=== PATIENT | male | born 1950 | race Caucasian/White ===

== ENCOUNTER 2018-06-11 08:00 | Day surgery (SDC) | payer MEDICARE, OTHER ==
[2018-06-11] MEDS ORDERED: ONDANSETRON HCL INJ/PF 4 MG/2 ML SDV ONE (08:36)
[2018-06-11] MEDS ORDERED: DIPHENHYDRAMINE HCL 50 MG/ML VIAL ONE (08:36)
[2018-06-11] MEDS ORDERED: NALOXONE HCL INJ/PF 0.4 MG/1 ML SDV ONE (08:36)
[2018-06-11] MEDS ORDERED: FLUMAZENIL INJ 0.5 MG/5 ML VIAL ONE (08:37)
[2018-06-11] MEDS ORDERED: EPINEPHRINE INJ 1 MG/10 ML DISP.SYRIN ONE (08:37)
[2018-06-11] MEDS ORDERED: GLUCAGON,HUMAN RECOMB 1 MG INJ ONE (08:37)
[2018-06-11] MEDS: MIDAZOLAM 2 MG/2 ML INJ ONE ×3 (08:48→08:54)
[2018-06-11] MEDS: FENTANYL CITRATE INJ/PF 100 MCG/2 ML AMPUL ONE ×2 (08:50→08:52)
--- NOTE | 2018-06-11 09:13 | Operative Report ---
Operative Report DATE OF SURGERY: 06/11/18 Operative Report: The risks benefits and alternatives of the procedure explained to the patient in detail and informed consent is obtained.A GIF Olympus video scope was inserted into the patient's mouth and hypopharynx, the esophagus is identified intubated and insufflated, the scope was then advanced through the esophagus stomach and duodenum, retroflexion maneuver is done, the esophagus stomach and first and second portions of the duodenum examined PREOPERATIVE DIAGNOSIS: Dysphagia weight loss POSTOPERATIVE DIAGNOSIS: Gastritis. Duodenitis. Biopsies taken to rule out for Helicobacter pylori. Sliding hiatal hernia. Patient appears to have a very prominent Schatzki's ring. Initial evaluation of the distal esophagus appears normal but on retroflexion of the scope there appears to be a white, translucent tissue that is visible status post biopsy OPERATION: EGD with biopsy SURGEON: SANDRA ROSARIO ANESTHESIA: Moderate Sedation - 4 mg of Versed, 50 mics of fentanyl. Conscious sedation monitoring time 30 minutes. TISSUE REMOVED OR ALTERED: As noted above. COMPLICATIONS: None. ESTIMATED BLOOD LOSS: None. INTRAOPERATIVE FINDINGS: As noted above. PROCEDURE: Patient tolerated the procedure well. No immediate postprocedure complications are noted. Patient discharged in good condition. Discharge date 06/11/2018. Discharge diet: Regular. Discharge activity: Regular. 2-3 week follow-up to discuss findings. We will wait on the pathology. Further recommendations to follow.
[2018-06-11 10:08] VITALS: BP 108/40
== END 2018-06-11 10:10 | disposition home or self-care (01) ==
LOC: END 08:00
PROVIDERS: ATTEND Internal Medicine Gastroenterology
PROC: 0DB68ZX Excision of Stomach, Via Natural or Artificial Opening Endoscopic, Diagnostic (ICD-10-PCS; principal; 2018-06-11 09:15)
DX: K22.2 Esophageal obstruction (principal); K29.80 Duodenitis without bleeding; K29.70 Gastritis, unspecified, without bleeding; K21.0 Gastro-esophageal reflux disease with esophagitis; R13.10 Dysphagia, unspecified; R63.4 Abnormal weight loss; Z68.1 Body mass index [BMI] 19.9 or less, adult
CPT/HCPCS: 43239; 88305 ×2; J2250; J3010; J0171; J1200; J1610; J2310; J2405; J3490

== ENCOUNTER → 2018-07-09 | Outpatient (CLI) | payer MEDICARE, OTHER ==
--- NOTE | 2018-07-09 09:29 | WOMENS IMAGING REPORT ---
EXAM DESCRIPTION: BONE DENSITY HIP/SPINE COMPLETED DATE/TIME: 07/09/2018 8:44 am REASON FOR STUDY: BONE DENSITY /M81.0 M85.80 OTH DISRD OF BONE DENSITY AND STRUCTURE, UNSPECIFIED M81.0 AGE-RELATED OSTEOPOROSIS W/O CURRENT PATHOLOGICAL FRAC COMPARISON: 2005 TECHNIQUE: Dual-Energy X-ray Absorptiometry (DEXA) of the AP Spine and Hip. LIMITATIONS: None. FINDINGS: LUMBAR SPINE: The bone mineral density (BMD) measured from L1-L4 in the AP projection correlates with a T-score of -0.1, which is normal as defined by the World Health Organization. This represents a 20% increase si nce 2006, which likely is due to vertebral body endplate sclerosis and facet arthropathy with bony sc lerosis. HIP: The bone mineral density (BMD) measured in the left femoral neck at the hip correlates with a T-score of -1.9, which is osteopenic as defined by the World Health Organization. This is statistically sim ilar compared to imaging in 2006 IMPRESSION: 1. LUMBAR SPINE: Normal 2. HIP: Osteopenic COMMENT: The World Health Organization defines low BMD as follows: T-score: Normal: Greater than -1.0 Osteopenia: Between -1.0 and -2.5 Osteoporosis: Less than -2.5 without fractures Established osteoporosis: Less than -2.5 with fractures In general, you may wish to consider: Diagnosis Treatment Follow-up DEXA Normal BMD Prevention 2-3 years Osteopenia Prevention/Therapy 1-2 years Osteoporosis Therapy Yearly TECHNICAL DOCUMENTATION: JOB ID: [id number] [employer]- All Rights Reserved Reading location - IP/workstation name: [email or web address]
== END ==
LOC: WI 07:56
PROVIDERS: ATTEND Family Medicine
DX: M81.0 Age-related osteoporosis without current pathological fracture (principal)
CPT/HCPCS: 77080

== ENCOUNTER 2019-01-14 07:44 | Day surgery (SDC) | payer MEDICARE, OTHER ==
[2019-01-12 10:59] LABS: APPEARANCE,URINE CLEAR; BILIRUBIN,URINE NEGATIVE (NEGATIVE); COLOR,URINE YELLOW; GLUCOSE, URINE NEGATIVE (NEGATIVE); KETONES,URINE NEGATIVE (NEGATIVE); LEUKOCYTE ESTERASE,URINE NEGATIVE (NEGATIVE); NITRITE,URINE NEGATIVE (NEGATIVE); PROTEIN,URINE NEGATIVE (NEGATIVE); URINE SPECIFIC GRAVITY 1.003; UROBILINOGEN,URINE NEGATIVE mg/dL (<2.0)
--- NOTE | 2019-01-12 11:42 | RADIOLOGY REPORT (SQ) ---
EXAM DESCRIPTION: CHEST PA/LATERAL COMPLETED DATE/TIME: 01/12/2019 11:29 am REASON FOR STUDY: PRE-OP COMPARISON: None. EXAM PARAMETERS: NUMBER OF VIEWS: two views TECHNIQUE: Digital Frontal and Lateral radiographic views of the chest acquired. RADIATION DOSE: NA LIMITATIONS: none FINDINGS: LUNGS AND PLEURA: Mild hyperinflation of the lungs and flattening of the diaphragms, find ings suggest COPD. Slight bibasilar atelectasis or scar. No acute pulmonary consolidation. No pneu mothorax or pleural effusion. MEDIASTINUM AND HILAR STRUCTURES: No masses or contour abnormalities. HEART AND VASCULAR STRUCTURES: Heart normal size. No evidence for failure. BONES: No acute findings. HARDWARE: None in the chest. OTHER: Moderate size hiatal hernia. Partially visualized left shoulder arthroplasty and hardware an terior fusion lower cervical spine IMPRESSION: 1. Findings suggest COPD. Slight minimal bibasilar scar or atelectasis. Prior granulo matous disease. No acute findings. 2. Hiatal hernia. TECHNICAL DOCUMENTATION: JOB ID: [id number] [employer]- All Rights Reserved Reading location - IP/workstation name: [email or web address]
[2019-01-12 11:57] LABS: HEMATOCRIT 36.2 % (37.9-51.0); HEMOGLOBIN 12.7 g/dL (13.5-17.0); MEAN CORPUSCULAR HEMOGLOBIN 36.2 pg (27.0-33.4); MEAN CORPUSCULAR VOLUME 104 fl (80-97); PLATELET COUNT 319 10^3/uL (150-450); RED CELL DISTRIBUTION WIDTH 12.7 % (11.5-14.0); WHITE BLOOD COUNT 6.3 10^3/uL (4.0-10.5)
[2019-01-12 12:21] LABS: ANION GAP 5 (5-19); BLOOD UREA NITROGEN 10 mg/dL (7-20); CALCIUM 9.1 mg/dL (8.4-10.2); CARBON DIOXIDE 26 mmol/L (22-30); CHLORIDE 104 mmol/L (98-107); GLUCOSE 93 mg/dL (75-110); POTASSIUM 4.9 mmol/L (3.6-5.0); SODIUM 135.3 mmol/L (137-145)
--- NOTE | 2019-01-12 23:37 | EKG REPORT ---
SEVERITY:- BORDERLINE ECG - SINUS RHYTHM PROBABLE LEFT ATRIAL ABNORMALITY : Confirmed by: Brunilda Vera MD 12-Jan-2019 23:37:14
[~2019-01-14 07:44] MED LIST: CLINDAMYCIN 600 MG/D5W RTU 600 MG/50 ML RTUPB IV ONE; CLINDAMYCIN 600 MG/D5W RTU 600 MG/50 ML RTUPB IV PRN; LACTATED RINGERS 1000 ML IV PRN; LIDOCAINE 0.5% INJ-PF (5 MG/ML) 50 ML SDV SUBCUT PRN
[2019-01-14] MEDS ORDERED: BUPIVACAINE HCL 0.5%-EPI 1:200000 INJ/PF 30 ML VIAL ONE (09:35)
[2019-01-14] MEDS ORDERED: LIDOCAINE 1% INJ-PF (10 MG/ML) 30 ML SDV ONE (10:21)
[2019-01-14] MEDS ORDERED: MIDAZOLAM 2 MG/2 ML INJ ONE (10:31)
[2019-01-14] MEDS ORDERED: LIDOCAINE 1%/EPINEPHRINE INJ 20 ML VIAL ONE (10:31)
[2019-01-14] MEDS ORDERED: BUPIVACAINE HCL 0.5 % INJ/PF 30 ML SDV ONE (10:31)
[2019-01-14] MEDS ORDERED: FENTANYL CITRATE INJ/PF 100 MCG/2 ML AMPUL ONE (10:31)
[2019-01-14] MEDS ORDERED: PROPOFOL INJ 200 MG/20 ML VIAL IV ONE (10:31)
[2019-01-14] MEDS ORDERED: PROMETHAZINE HCL INJ 25 MG/1 ML VIAL IV PRN ×2 (10:47)
[2019-01-14] MEDS ORDERED: FENTANYL CITRATE INJ/PF 100 MCG/2 ML AMPUL IV PRN ×3 (10:47)
[2019-01-14] MEDS ORDERED: DIPHENHYDRAMINE HCL 50 MG/ML VIAL IV PRN (10:47)
[2019-01-14] MEDS ORDERED: MEPERIDINE HCL/PF INJ 25 MG/1 ML DISP.SYRIN IV PRN (10:47)
--- NOTE | 2019-01-14 11:10 | Discharge Summary ---
Discharge Summary (SDC) - Discharge Final Diagnosis: Painful hardware status post ORIF of a right patella fracture Date of Surgery: 01/14/19 Discharge Date: 01/14/19 Condition: Good Treatment or Instructions: Activity as tolerated Prescriptions: Hydrocodone/Acetaminophen [Sixes 5-325 mg Tablet] 1 tab PO Q6 PRN #40 tablet PRN Reason: Referrals: TRACEY EDWARDS MD [Primary Care Provider] - Discharge Diet: As Tolerated, Regular Respiratory Treatments at Home: Deep Breathing/Coughing Discharge Activity: Activity As Tolerated, No tub bath Home Care Assistance: None Needed Report the Following to Your Physician Immediately: Shortness of Breath, Fever over 101 Degrees, Drainage-Foul Smelling
--- NOTE | 2019-01-14 11:12 | Operative Report ---
Operative Report DATE OF SURGERY: 01/14/19 PREOPERATIVE DIAGNOSIS: Painful hardware right knee status post ORIF of right p atella fracture OPERATION: Hardware removal right knee SURGEON: NATHANIEL LORD ANESTHESIA: LMAC TISSUE REMOVED OR ALTERED: Hardware to CSS ESTIMATED BLOOD LOSS: Minimal PROCEDURE: With the patient supine on the operating room table he right lower extremities prepped and draped in a sterile fashion. The previous midline longitudinal incision is infiltrated with combination of Marcaine, Xylocaine, and epinephrine. Sharp dissection was used carried incision down to the underlying patella. With the help of fluoroscopy the existing hardware is identified. The cerclage cable is cut and removed. The 2 pins are removed from the distal aspect. Fluoroscopy was again used to ensure that all hardware was removed. The wound is irrigated. Hemostasis obtained with electrocautery. The wound is closed in layers interrupted Vicryl followed by nylon. A sterile compressive dressing was applied and the patient's return to PACU in satisfactory condition.
[2019-01-14] MEDS ORDERED: HYDROCODONE/ACETAMINOPHEN 5-325 MG TABLET PO PRN (11:42)
--- NOTE | 2019-01-14 11:43 | RADIOLOGY REPORT (SQ) ---
EXAM DESCRIPTION: KNEE RIGHT 2 VIEWS; NO CHG FLUORO COMPLETED DATE/TIME: 01/14/2019 11:33 am REASON FOR STUDY: HARDWARE REMOVAL RT KNEE ASST WITH FLUORO IN OR S82.031S DISPLACED TRANSVERSE FRA CTURE OF RIGHT PATELLA, SEQ Z01.818 ENCOUNTER FOR OTHER PREPROCEDURAL EXAMINATION COMPARISON: None. FLUOROSCOPY TIME: Less than 10 seconds 2 digital C-arm images saved to PACS. TECHNIQUE: Intra-operative images acquired during surgical procedure to evaluate progress. NUMBER OF IMAGES: 2 digital C-arm images saved to pac's LIMITATIONS: None. FINDINGS: Intra procedural imaging and fluoro demonstrates removal of hardware from the patella. IMPRESSION: IMAGE(S) OBTAINED DURING PROCEDURE. COMMENT: Quality ID [id number]: Final reports for procedures using fluoroscopy that document radiation exp osure indices, or exposure time and number of fluorographic images (if radiation exposure indices are not available) Please consult full operative report of the attending physician for description of the procedure. TECHNICAL DOCUMENTATION: JOB ID: [id number] [employer]- All Rights Reserved Reading location - IP/workstation name: [email or web address]
--- NOTE | 2019-01-14 11:43 | RADIOLOGY REPORT (SQ) ---
EXAM DESCRIPTION: KNEE RIGHT 2 VIEWS; NO CHG FLUORO COMPLETED DATE/TIME: 01/14/2019 11:33 am REASON FOR STUDY: HARDWARE REMOVAL RT KNEE ASST WITH FLUORO IN OR S82.031S DISPLACED TRANSVERSE FRA CTURE OF RIGHT PATELLA, SEQ Z01.818 ENCOUNTER FOR OTHER PREPROCEDURAL EXAMINATION COMPARISON: None. FLUOROSCOPY TIME: Less than 10 seconds 2 digital C-arm images saved to PACS. TECHNIQUE: Intra-operative images acquired during surgical procedure to evaluate progress. NUMBER OF IMAGES: 2 digital C-arm images saved to pac's LIMITATIONS: None. FINDINGS: Intra procedural imaging and fluoro demonstrates removal of hardware from the patella. IMPRESSION: IMAGE(S) OBTAINED DURING PROCEDURE. COMMENT: Quality ID [id number]: Final reports for procedures using fluoroscopy that document radiation exp osure indices, or exposure time and number of fluorographic images (if radiation exposure indices are not available) Please consult full operative report of the attending physician for description of the procedure. TECHNICAL DOCUMENTATION: JOB ID: [id number] [employer]- All Rights Reserved Reading location - IP/workstation name: [email or web address]
[2019-01-14] MEDS ORDERED: HYDROCODONE/ACETAMINOPHEN 5-325 MG TABLET ONE (11:56)
[2019-01-14 13:08] VITALS: BP 173/83
== END 2019-01-14 12:55 | disposition home or self-care (01) ==
LOC: OROUT 07:44
PROVIDERS: ATTEND Orthopaedic Surgery
DX: T84.84XA Pain due to internal orthopedic prosthetic devices, implants and grafts, initial encounter (principal); Y83.8 Other surgical procedures as the cause of abnormal reaction of the patient, or of later complication, without mention of misadventure at the time of the procedure; E78.5 Hyperlipidemia, unspecified; I10 Essential (primary) hypertension; Z79.899 Other long term (current) drug therapy; Z88.0 Allergy status to penicillin; Z87.892 Personal history of anaphylaxis; Z85.028 Personal history of other malignant neoplasm of stomach; F10.20 Alcohol dependence, uncomplicated; F43.10 Post-traumatic stress disorder, unspecified; R63.4 Abnormal weight loss; Z68.1 Body mass index [BMI] 19.9 or less, adult; F17.210 Nicotine dependence, cigarettes, uncomplicated
CPT/HCPCS: 93005; 36415; 85027; 80048; 81001; 71046; 73560; 93010; 20680; J2250; J3490 ×2; J3010; J2704; A9270; 01392

== ENCOUNTER → 2019-02-03 | Outpatient (CLI) | payer MEDICARE, OTHER ==
--- NOTE | 2019-02-03 10:17 | RADIOLOGY REPORT (SQ) ---
EXAM DESCRIPTION: CT ABDOMEN NO ORAL OR IV COMPLETED DATE/TIME: 02/03/2019 9:54 am REASON FOR STUDY: BILATERAL ABDOMINAL PAIN H/O STOMACH CANCER R10.13 EPIGASTRIC PAIN COMPARISON: None. TECHNIQUE: CT scan of the abdomen performed without intravenous contrast and without oral contrast. Images reviewed with lung, soft tissue, and bone windows. Reconstructed coronal and sagittal MPR im ages reviewed. All images stored on PACS. All CT scanners at this facility use dose modulation, iterative reconstruction, and/or weight based d osing when appropriate to reduce radiation dose to as low as reasonably achievable (ALARA). [facility]: Dose Right [facility]: CareDose [facility]: Dose Right [facility]: Teradose 4D [facility]: Smart [employer] RADIATION DOSE: CT Rad equipment meets quality standard of care and radiation dose reduction techniq ues were employed. CTDIvol: 2.8 - 3.0 mGy. DLP: 178 mGy-cm.mGy. LIMITATIONS: None. FINDINGS: LOWER CHEST: Large retrocardiac hiatal hernia containing the stomach fundus. No pulmonary nodules or infiltrates. NONCONTRASTED LIVER, SPLEEN, ADRENALS: Evaluation limited by lack of IV contrast. No identified sign ificant masses. PANCREAS: No masses. No peripancreatic inflammatory changes. GALLBLADDER: Surgically absent RIGHT KIDNEY AND URETER: No suspicious masses. Assessment limited by lack of IV contrast. No signif icant calcifications. Moderate right hydronephrosis and hydroureter down to the ureterovesical junc tion. LEFT KIDNEY AND URETER: No suspicious masses. Assessment limited by lack of IV contrast. No signifi cant calcifications. Moderate left hydronephrosis and hydroureter down to the ureterovesical juncti on. AORTA AND RETROPERITONEUM: Heavily calcified without aneurysm. 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 BOWEL AND PERITONEAL CAVITY: No free intraperitoneal air or fluid or CT signs of bowel obstruction. Descending and sigmoid colon diverticuli are present without CT signs of acute diverticulitis APPENDIX: Normal. ABDOMINAL WALL: No abdominal wall hernias. BONES: No significant findings. OTHER: Because of the bilateral hydronephrosis and hydroureter noted on the abdomen exam, CT of the p lupe was performed to evaluate for bladder outlet obstruction. Urinary bladder is distended, measur ing 12 x 10 x 15 cm in size. Normal size prostate. Dense prostate calcifications are present. IMPRESSION: Suspect urinary outflow obstruction at the level of the prostate or urethra, with moder ate bilateral hydronephrosis and hydroureter down to a distended urinary bladder. 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
== END ==
LOC: RAD 09:30
PROVIDERS: ATTEND Family Medicine
DX: R10.13 Epigastric pain (principal)
CPT/HCPCS: 74150